=== PATIENT | female | born 1950 | race Caucasian/White ===

== ENCOUNTER 2017-01-23 09:25 | Inpatient (IN) | payer BC, OTHER ==
[~2017-01-23] VITALS: Ht 165.1 cm; Wt 67.3 kg
[~2017-01-23 09:25] MED LIST: ALIGN4 MG PO; ALTACE10 MG PO; ALTACE5 MG PO; ASACOL HD800 MG PO; ASACOL400 MG PO; ASPIR 8181 M1 PO; ASPIR-LOW81 MG PO; AZATHIOPRINE50 MG PO; Altace PO; Aspirin E.C. PO; BENTYL10 MG PO; BUDESONIDE EC3 MG PO; CHOLESTYRAMINE L4 GM PO; CIPRO500 MG PO; COLACE100 MG PO; FLAGYL500 MG PO; K-DUR20 MEQ PO; KLOR-CON M2020 MEQ PO; LEVAQUIN500 MG PO; LIPITOR10 MG PO; LISINOPRIL10 MG PO; Lopressor PO; MAGOX 400400 MG PO; METOPROLOL TART25 MG PO; METRONIDAZOLE500 MG PO; NITROSTAT0.4 MG SL; NORCO 5/3251 TABLET PO; NORVASC10 MG PO; NORVASC5 MG PO; PANTOPRAZOLE SO40 MG PO; PLAVIX75 MG PO; PREDNISOLONE AC15 ML BOTH EYES; PREDNISONE10 MG PO; PROTONIX40 MG PO; Plavix PO; Protonix PO; RAMIPRIL5 MG PO; REMICADE IV; REMICADE10 MG/ML IV; RESTASIS 01 DROP/0.4 BOTH EYES; TRAMADOL HCL50 MG PO; TYLOX1 CAPSULE PO; VITAMIN D5000 UNI1 PO; WARFARIN SODIUM5 MG PO; WELCHOL625 MG PO; XIFAXAN550 MG PO; ZOFRAN ODT4 MG PO; [UNRECOGNIZED DRUG - OTHER] PO
[2017-01-23 10:00] LABS: EOSINOPHIL (%) 0.4 % (0-5); EOSINOPHIL COUNT 0.1 K/uL (0-0.3); HEMATOCRIT 39.3 % (36.0-46.0); IMMATURE GRANULOCYTE (%) 0.4 % (0.0-0.7); IMMATURE GRANULOCYTE COUNT 0.1 K/uL; INSTRUMENT ABS NEUTROPHIL CT 10.5 K/uL; LYMPHOCYTE COUNT 1.5 K/uL (1.0-2.8); MCH 29.3 PG (29.0-34.0); MCHC 31.8 G/DL (30.0-36.0); MCV 92.3 FL (83-99); MEAN PLAT.VOLUME 9.7 uM^3 (9.5-12.4); MONOCYTE (%) 2.3 % (3-12); MONOCYTE COUNT 0.3 K/uL (0-0.8); NEUTROPHIL (%) 84.9 % (45-76); NEUTROPHIL COUNT 10.5 K/uL (1.8-6.4); PLATELET COUNT 245 K/uL (156-360); RBC DIS.WIDTH-CV 13.7 % (11.8-14.6); RBC DIS.WIDTH-SD 46.4 % (39-53); RED BLOOD COUNT 4.26 M/uL (3.80-5.20); WHITE BLOOD COUNT 12.4 K/uL (4.1-10.2)
[2017-01-23 10:07] LABS: CHLORIDE 103 mEq/L (99-109); POTASSIUM 4.4 mEq/L (3.7-5.4); SODIUM 139 mEq/L (136-147)
[2017-01-23 10:10] LABS: GLUCOSE 123 mg/dL (70-99)
[2017-01-23 10:11] LABS: ANION GAP 13 MEQ/L (2-14); TOTAL BILIRUBIN 1.4 mg/dL (0.0-1.0)
[2017-01-23 10:13] LABS: ALKALINE PHOSPHATASE 102 IU/L (3-129); GFR ESTIMATE (CALCULATED) > 59 mL/min/
[2017-01-23 10:14] LABS: UREA NITROGEN (BUN) 20 mg/dL (9-23)
[2017-01-23 10:17] LABS: LIPASE 31 U/L (1.0-51.0)
[2017-01-23 11:59] LABS: ADD MIUA? NO; BILIRUBIN NEGATIVE; BLOOD NEGATIVE; COLOR STRAW ((YELLOW)); GLUCOSE (STRIP) NEGATIVE; KETONES NEGATIVE; LEUKOCYTES NEGATIVE; NITRITE NEGATIVE; PROTEIN (STRIP) NEGATIVE; SPECIFIC GRAVITY 1.014 (1.000-1.030); UROBILINOGEN 0.2 MG/DL (0.2-1.0)
[2017-01-23] MEDS ORDERED: IMODIUM A-D2 M2 PO (12:01)
[2017-01-23 12:24] LABS: TROP-I INTERPRETATION NEGATIVE; TROPONIN-I 0.01 ng/mL (0.0-0.30)
[2017-01-23 18:24] VITALS: BP 151/67
[2017-01-23 19:31] VITALS: BP 158/74
[2017-01-24 00:24] VITALS: BP 104/57
[2017-01-24 03:50] VITALS: BP 145/67
[2017-01-24 05:47] LABS: ALKALINE PHOSPHATASE 68 IU/L (3-129); ANION GAP 9 MEQ/L (2-14); CHLORIDE 110 MEQ/L (99-109); GFR ESTIMATE (CALCULATED) > 59 mL/min/; GLUCOSE 99 mg/dL (70-99); SAMPLE HEMOLYSIS CHECK 0; SAMPLE ICTERIC CHECK 0; SAMPLE LIPEMIA CHECK 0; SODIUM 140 MEQ/L (136-147); TOTAL BILIRUBIN 1.8 MG/DL (0.0-1.0); UREA NITROGEN (BUN) 12 mg/dL (9-23)
[2017-01-24 05:59] LABS: POTASSIUM 3.5 MEQ/L (3.7-5.4)
[2017-01-24 06:11] LABS: HEMATOCRIT 31.5 % (36.0-46.0); MCH 30.2 PG (29.0-34.0); MCV 91.6 FL (83-99); MEAN PLAT.VOLUME 10.3 uM^3 (9.5-12.4); PLATELET COUNT 209 K/uL (156-360); RBC DIS.WIDTH-CV 14.2 % (11.8-14.6); RBC DIS.WIDTH-SD 47.7 % (39-53); RED BLOOD COUNT 3.44 M/uL (3.80-5.20); WHITE BLOOD COUNT 18.5 K/uL (4.1-10.2)
[2017-01-24 07:00] VITALS: BP 119/58
[2017-01-24 12:00] VITALS: BP 136/58
[2017-01-24 15:19] VITALS: BP 119/58
[2017-01-24 21:00] VITALS: BP 166/71
[2017-01-25] VITALS (7 sets, daily range): BP systolic 97–164; BP diastolic 53–77
[2017-01-25 01:21] LABS: INFLUENZA A VIRAL ANTIGEN NEGATIVE; INFLUENZA B VIRAL ANTIGEN NEGATIVE
[2017-01-25 02:10] LABS: METH RESISTANT S AUREUS PCR NEGATIVE (NEGATIVE)
[2017-01-25 02:13] LABS: PROBE CHECK PASS; SPECIMEN PROCESSING CONTROL PASS
[2017-01-25 05:52] LABS: HEMATOCRIT 36.3 % (36.0-46.0); MCHC 31.7 G/DL (30.0-36.0); MCV 94.8 FL (83-99); MEAN PLAT.VOLUME 11.3 uM^3 (9.5-12.4); PLATELET COUNT 192 K/uL (156-360); RBC DIS.WIDTH-CV 14.3 % (11.8-14.6); RBC DIS.WIDTH-SD 49.3 % (39-53); RED BLOOD COUNT 3.83 M/uL (3.80-5.20); WHITE BLOOD COUNT 16.1 K/uL (4.1-10.2)
[2017-01-25 06:11] LABS: ANION GAP 13 MEQ/L (2-14); CHLORIDE 109 MEQ/L (99-109); POTASSIUM 4.1 MEQ/L (3.7-5.4); SAMPLE HEMOLYSIS CHECK 1; SAMPLE ICTERIC CHECK 0; SAMPLE LIPEMIA CHECK 0; SODIUM 141 MEQ/L (136-147)
[2017-01-25 06:16] LABS: GFR ESTIMATE (CALCULATED) > 59 mL/min/; GLUCOSE 75 mg/dL (70-99); UREA NITROGEN (BUN) 10 mg/dL (9-23)
[2017-01-25 08:25] LABS: INTERNAL CONTROL VALID? YES
[2017-01-25 10:51] LABS: TROP-I INTERPRETATION NEGATIVE; TROPONIN-I 0.11 ng/mL (0.0-0.30)
[2017-01-26 04:00] VITALS: BP 134/62
[2017-01-26 05:16] LABS: MCV 90.9 FL (83-99); MEAN PLAT.VOLUME 10.5 uM^3 (9.5-12.4); PLATELET COUNT 203 K/uL (156-360); RBC DIS.WIDTH-CV 13.7 % (11.8-14.6); RBC DIS.WIDTH-SD 45.8 % (39-53); WHITE BLOOD COUNT 10.2 K/uL (4.1-10.2)
[2017-01-26 05:55] LABS: ANION GAP 8 MEQ/L (2-14); CHLORIDE 99 MEQ/L (99-109); GFR ESTIMATE (CALCULATED) > 59 mL/min/; GLUCOSE 88 mg/dL (70-99); MAGNESIUM 1.7 mg/dl (1.3-2.7); SAMPLE HEMOLYSIS CHECK 0; SAMPLE ICTERIC CHECK 0; SAMPLE LIPEMIA CHECK 0; SODIUM 138 MEQ/L (136-147); UREA NITROGEN (BUN) 10 mg/dL (9-23)
[2017-01-26 07:12] VITALS: BP 115/57
[2017-01-26 11:05] LABS: TROP-I INTERPRETATION NEGATIVE; TROPONIN-I 0.04 ng/mL (0.0-0.30)
[2017-01-26 11:38] VITALS: BP 92/51
[2017-01-26 16:09] VITALS: BP 135/56
[2017-01-26 19:54] VITALS: BP 113/57
[2017-01-26 22:09] VITALS: BP 139/68
[2017-01-27 03:44] VITALS: BP 157/67
[2017-01-27 06:18] LABS: HEMATOCRIT 30.8 % (36.0-46.0); MCH 30.4 PG (29.0-34.0); MCHC 33.4 G/DL (30.0-36.0); MCV 90.9 FL (83-99); MEAN PLAT.VOLUME 10.5 uM^3 (9.5-12.4); RBC DIS.WIDTH-CV 13.6 % (11.8-14.6); RBC DIS.WIDTH-SD 45.7 % (39-53); RED BLOOD COUNT 3.39 M/uL (3.80-5.20); WHITE BLOOD COUNT 5.3 K/uL (4.1-10.2)
[2017-01-27 06:23] LABS: PLATELET COUNT 269 K/uL (156-360)
[2017-01-27 06:24] LABS: ANION GAP 10 MEQ/L (2-14); CHLORIDE 101 MEQ/L (99-109); GFR ESTIMATE (CALCULATED) > 59 mL/min/; GLUCOSE 94 mg/dL (70-99); POTASSIUM 3.4 MEQ/L (3.7-5.4); SAMPLE HEMOLYSIS CHECK 0; SAMPLE ICTERIC CHECK 0; SAMPLE LIPEMIA CHECK 0; SODIUM 140 MEQ/L (136-147); UREA NITROGEN (BUN) 13 mg/dL (9-23)
[2017-01-27 07:11] VITALS: BP 111/63
[2017-01-27 11:01] VITALS: BP 135/67
[2017-01-27 16:30] VITALS: BP 141/70
[2017-01-27 20:11] VITALS: BP 157/71
[2017-01-27 23:43] VITALS: BP 152/70
[2017-01-28 04:48] VITALS: BP 137/65
[2017-01-28 07:15] VITALS: BP 128/65
[2017-01-28] MEDS ORDERED: OMNICEF300 MG PO (10:44)
== END 2017-01-28 12:10 | disposition home health service (06) | DRG 871 ==
LOC: EME 09:25 → 4EAST 14:24 → EDOF 14:24 → ENRESERV 15:07 → 4EAST 17:45 → CANRESERV 01-27 09:52 → ENRESERV 01-27 09:52 → 4EAST 01-28 12:10
PROVIDERS: Emergency Medicine; Hospitalist; Internal Medicine
DX: A41.9 Sepsis, unspecified organism (principal); J18.9 Pneumonia, unspecified organism; K50.90 Crohn's disease, unspecified, without complications; R65.20 Severe sepsis without septic shock; I25.10 Atherosclerotic heart disease of native coronary artery without angina pectoris; E78.5 Hyperlipidemia, unspecified; Z86.73 Personal history of transient ischemic attack (TIA), and cerebral infarction without residual deficits; J96.01 Acute respiratory failure with hypoxia; I50.33 Acute on chronic diastolic (congestive) heart failure; I11.0 Hypertensive heart disease with heart failure; E83.42 Hypomagnesemia; E87.6 Hypokalemia; E87.2 Acidosis; I27.20 Pulmonary hypertension, unspecified; T50.1X5A Adverse effect of loop [high-ceiling] diuretics, initial encounter; I95.2 Hypotension due to drugs; K21.9 Gastro-esophageal reflux disease without esophagitis; Z87.891 Personal history of nicotine dependence; Z87.440 Personal history of urinary (tract) infections
CPT/HCPCS: 71010; 71250; 74177; 80048; 80053; 81003; 82565; 83605; 83690; 83735; 83880; 84484; 85025; 85027; 87040; 87070; 87205; 87449; 87502; 87641; 93005; 93306; 94640 76; 94799; 99202; 99281; 99285; J0456; J0692; J0696; J1650; J1885; J1940; J2405; J3370; J3475; J7030; J7050

== ENCOUNTER 2017-02-11 06:04 | Emergency (ER) | payer OTHER, BC ==
[~2017-02-11] VITALS: Ht 152.4 cm; Wt 67.4 kg
[~2017-02-11 06:04] MED LIST changes: +IMODIUM A-D2 M2 PO; +OMNICEF300 MG PO
[2017-02-11 06:41] LABS: HEMATOCRIT 35.1 % (36.0-46.0); MCHC 32.2 G/DL (30.0-36.0); MCV 90.2 FL (83-99); MEAN PLAT.VOLUME 9.5 uM^3 (9.5-12.4); RBC DIS.WIDTH-SD 46.2 % (39-53); RED BLOOD COUNT 3.89 M/uL (3.80-5.20); WHITE BLOOD COUNT 10.7 K/uL (4.1-10.2)
[2017-02-11 06:42] LABS: PLATELET COUNT 424 K/uL (156-360)
[2017-02-11 07:11] LABS: ANION GAP 12 MEQ/L (2-14); CHLORIDE 107 MEQ/L (99-109); POTASSIUM 3.8 MEQ/L (3.7-5.4); SAMPLE HEMOLYSIS CHECK 0; SAMPLE ICTERIC CHECK 0; SAMPLE LIPEMIA CHECK 0; SODIUM 142 MEQ/L (136-147); TOTAL BILIRUBIN 0.8 MG/DL (0.0-1.0)
[2017-02-11 07:17] LABS: ALKALINE PHOSPHATASE 86 IU/L (3-129); GFR ESTIMATE (CALCULATED) > 59 mL/min/; GLUCOSE 108 mg/dL (70-99); LIPASE 27 U/L (1.0-51.0); UREA NITROGEN (BUN) 14 mg/dL (9-23)
[2017-02-11] MEDS ORDERED: PREDNISONE20 MG PO (09:56)
[2017-02-11] MEDS ORDERED: ZOFRAN4 MG PO (09:58)
[2017-02-11] MEDS ORDERED: TYLENOL WITH C1 EACH PO (09:58)
[2017-02-11 10:14] VITALS: BP 126/61
== END 2017-02-11 10:16 | disposition home or self-care (01) ==
LOC: EME 06:04
PROVIDERS: Nurse Practitioner Family
DX: K50.00 Crohn's disease of small intestine without complications (principal); K21.9 Gastro-esophageal reflux disease without esophagitis; I10 Essential (primary) hypertension; E78.5 Hyperlipidemia, unspecified; Z86.73 Personal history of transient ischemic attack (TIA), and cerebral infarction without residual deficits; Z95.5 Presence of coronary angioplasty implant and graft; Z87.891 Personal history of nicotine dependence; Z91.040 Latex allergy status; Z88.0 Allergy status to penicillin; Z88.2 Allergy status to sulfonamides; Z88.8 Allergy status to other drugs, medicaments and biological substances
CPT/HCPCS: 74177; 80053; 81003; 83690; 85027; 99281; 99285; J2270; J2405; J7030